=== PATIENT | female | born 1995 ===

== ENCOUNTER 2022-04-25 10:39 | Emergency (ER) | payer MEDICARE, MEDICAID, SELFPAY ==
--- NOTE | 2022-04-25 | ECG_ITS ---
Test Reason : cp,palpitations Blood Pressure : / mmHG Vent. Rate : 070 BPM Atrial Rate : 070 BPM P-R Int : 162 ms QRS Dur : 080 ms QT Int : 386 ms P-R-T Axes : 057 079 051 degrees QTc Int : 416 ms Normal sinus rhythm with sinus arrhythmia Normal ECG When compared with ECG of 09-MAR-2020 13:21, No significant change was found Referred By: Generic ED Physician Electronically Signed By:OUSMANE YU
--- NOTE | ~2022-04-25 | CT_ITS ---
EXAMINATION: CT ABDOMEN AND PELVIS WITHOUT CONTRAST CLINICAL INFORMATION: Flank pain with nausea and vomiting COMPARISON: None TECHNIQUE: Multidetector volumetric imaging was performed from the superior aspect of the liver through the pubic symphysis. Sagittal and coronal reformatted images were obtained on the technologist's workstation. This CT examination was performed using dose optimization techniques as appropriate, variously including the following: *Automated exposure control *Adjustment of mA and/or kV according to patient size (this includes techniques or standardized protocols for targeted exams where dose is matched to indication/reason for exam; i.e. extremities or head) *Use of iterative reconstruction technique DLP: 565 mGy-cm FINDINGS: LUNG BASES: The visualized lung bases are unremarkable. LIVER, GALLBLADDER, AND BILIARY TREE: The liver is normal in size, shape, and attenuation. No focal hepatic lesion or biliary ductal dilatation is present. The gallbladder is unremarkable with no evidence of radiopaque gallstones, gallbladder wall thickening, or obvious pericholecystic inflammatory changes. PANCREAS: Unremarkable. SPLEEN: Unremarkable. ADRENAL GLANDS: Unremarkable. KIDNEYS AND URETERS: Punctate 1 mm calcification in the midpole the right kidney equivocal for a tiny nonobstructing stone on series 4-247. No other radiodense urinary tract calculi. No hydronephrosis. No appreciable renal lesions. No perinephric stranding. BLADDER: Unremarkable. GASTROINTESTINAL TRACT: Mild sigmoid diverticulosis. No evidence acute diverticulitis. No dilated bowel loops. No bowel wall thickening. Normal appendix. No ascites or free air. ABDOMINAL WALL: No significant hernia is appreciated. LYMPH NODES: No lymphadenopathy. VASCULAR: Normal caliber abdominal aorta. PELVIC VISCERA: Approximately 3 cm low-density suspected cyst in the right ovary. Gynecologic structures otherwise unremarkable. Tampon noted. OSSEOUS STRUCTURES: No acute fracture or suspicious osseous lesion. CT/CT abdomen pelvis wo con IMPRESSION: 1. No acute intra-abdominal process identified. 2. Equivocal punctate 1 mm nonobstructing calculus in the right midpole. No other radiodense urinary tract calculi. 3. Approximately 3 cm likely benign low-density right ovarian cyst.
[2022-04-25 11:26] VITALS: BP 109/75; PULSE 82; RESP 18; TEMP 36.6; O2SAT 98; BMI 30.5
[2022-04-25 12:03] LABS: UPreg QC Valid YES; Urine Pregnancy NEGATIVE (NEGATIVE)
[2022-04-25 12:04] LABS: Appearance Urine CLEAR; Color Urine YELLOW; Glucose Urine UA NEG (NEG); Leukocyte Esterase Urine NEG (NEG); Nitrite Urine NEG (NEG); PH 6.5 (5.0-8.0); Urine Blood NEG (NEG); Urine Ketones NEG (NEG); Urine Protein NEG (NEG-TRACE)
[2022-04-25 12:08] LABS: Basophils Percent Auto 0.3 % (0-2); Eosinophils Percent Auto 0.2 % (0-4); Hemoglobin 13.5 g/dl (12.0-16.0); Imm Gran Abs Auto 0.01 X10*3/uL (0.00-0.03); Imm Gran Pct Auto 0.2 % (0.0-0.4); Lymphocytes Absolute Auto 2.1 X10*3/uL (1.2-4.9); Lymphocytes Percent Auto 36.1 % (20-40); MANUAL DIFF FLAG SCAN; Mean Corpuscular HGB Conc 34.6 g/dl (31.0-35.0); Mean Corpuscular Hemoglobin 31.6 pg (27.0-33.0); Mean Corpuscular Volume 91.3 fL (80.0-98.0); Monocytes Absolute Auto 0.4 X10*3/uL (0.1-1.2); Monocytes Percent Auto 6.4 % (2-11); Neutrophils Absolute Auto 3.3 x10*3/uL (2.0-8.3); Neutrophils Percent Auto 56.8 % (45-73); PLT CLUMP 1; Red Blood Count 4.27 X10*6/uL (4.20-5.50); Red Cell Distribution Width 11.8 % (11.0-16.0); SCAN SMEAR FLAG 1
[2022-04-25 12:10] LABS: Anion Gap 11 (12-20); Blood Urea Nitrogen 13 mg/dL (9-16); Calcium 9.6 mg/dL (8.4-10.2); Carbon Dioxide 27 mmol/L (22-29); Chloride 103 mmol/L (96-108); Creatinine Clr Calc Pharmacy 96.5; Estimated Glomerular Filt Rate > 60; Glucose Random 90 mg/dL (60-115); Potassium 4.4 mmol/L (3.3-5.1); Sodium 137 mmol/L (135-145)
[2022-04-25 12:24] LABS: Valproate 58.2 mcg/mL (50.0-100.0)
[2022-04-25 12:29] LABS: Magnesium 2.1 mg/dL (1.6-2.6)
[2022-04-25 13:29] LABS: Platelet Count 78 X10*3/uL (160-400); White Blood Count 5.8 X10*3/uL (4.8-10.8)
[2022-04-25 13:30] LABS: SLIDE REVIEW VERIFIED
[2022-04-25 16:00] VITALS: BP 122/74; PULSE 67; RESP 18; TEMP 36.9; O2SAT 99
[2022-04-25] MEDS: 0.9 % Sodium Chloride 1,000 ML 999 ML IVCONT (16:51)
--- NOTE | 2022-04-25 16:51 | ED.GENADULT ---
HPI - General Adult General Chief complaint: General Medical Stated complaint: Vomiting/Back pain/Abd pain Time Seen by Provider: 04/25/22 16:16 Source: patient Mode of arrival: ambulatory Limitations: no limitations History of Present Illness HPI narrative: 27-year-old female presents with several days of vomiting, flank pain, and abdominal pain. She does not report any fevers or chills, does not report abnormal vaginal bleeding or dysuria. Onset (ago): day(s) Location: abdomen and left Radiation: flank Severity: moderate Severity scale (1-10): 5 Quality: stabbing and aching Pain Consistency: intermittent and colicky Relieving factors: none Exacerbating factors: movement Associated symptoms: nausea/vomiting Treatments prior to arrival: none Related Data Previous Rx's Medication Instructions Recorded tamsulosin 0.4 mg capsule (Flomax) 0.4 mg PO DAILY 21 days #21 caps 04/25/22 Allergies Allergy/AdvReac Type Severity Reaction Status Date / Time bee pollen [BEE STINGS] Allergy Intermediate HIVES Verified 04/25/22 11:22 alprazolam Allergy Hives Verified 04/25/22 11:25 lamotrigine Allergy Hives Verified 04/25/22 11:24 levetiracetam [From Keppra] Allergy Unknown Verified 04/25/22 11:23 lithium Allergy Hives Verified 04/25/22 11:24 Review of Systems Review of Systems: Constitutional: No Fever, No Chills ENT/Mouth: No Ear Pain, No Hoarseness, No sore throat Eyes: No Eye Pain, No Swelling, No Redness, No Foreign Body Cardiovascular: No Chest Pain, No SOB Respiratory: No Cough, No Dyspnea Gastrointestinal: Positive Nausea, positive Vomiting, No Diarrhea, positive flank and abdominal Pain Genitourinary: No Dysuria, No Hematuria Musculoskeletal: No joint pain, No Myalgias, No Joint Swelling Skin: No Skin lacerations, No rash Neuro: No Weakness, No Numbness, No Paresthesias, No Loss of Consciousness, No Dizziness, No Headache Psych: No Anxiety/Panic, No Depression Heme/Lymph: no easy bruising, no Lymphadenopathy Endocrine: No Polyuria, No Polydipsia Yes all other systems are reviewed and are negative PMFSH Past Medical History Attestation statement: The following information was validated with the patient. Source: old records reviewed Medical History Abnormal ultrasound of breast Bipolar 1 disorder Fibroadenoma of both breasts Other specified glaucoma Post traumatic stress disorder (PTSD) Seizure Social History Social History Alcohol intake: never Patient Tobacco Use Status: Former Tobacco user Smoked in Last 30 Days: Yes Use of substances other than those prescribed or required for medical reasons: Yes Substance Use Type: Marijuana Substance Use Frequency: Daily Advance Directives: No Advance Directives Information Provided: No Patient : No Physical Exam ED Vital Signs: Vital Signs - 24 hr 04/25/22 11:26 04/25/22 16:00 04/25/22 17:39 Temperature 98 F 98.5 F 98.3 F Pulse Rate 82 67 68 Respiratory Rate 18 18 18 Blood Pressure 109/75 122/74 111/62 Pulse Oximetry 98 99 100 Oxygen Delivery Method Room Air Room Air Room Air BMI result Body Mass Index 30.5 Appearance: Alert. Oriented X3. No acute distress. Eyes: Pupils equal, round and reactive to light. ENT: Pharynx normal. Neck: Normal inspection. Neck supple. CVS: Normal heart rate and rhythm. Pulses normal. Respiratory: No respiratory distress. Breath sounds normal. Abdomen: Soft and nontender. Positive left CVA tenderness. Skin: Skin warm and dry. Normal skin color. Normal skin turgor. Extremities: No lower extremity edema. Gait well balanced well coordinated. Neuro: No motor deficit. No sensory deficit. Cranial nerves 2-12 intact. Course Course Course Narrative: 27-year-old female presents with abdominal pain, nausea, vomiting, for the past several days. States have flank pain that radiates up to her groin. Does not report any traumatic injury, denies . Denies fevers, chills, chest pain pressure, palpitations, shortness breath, abdominal distention, dysuria, hematuria, weakness and lightheadedness. Labs drawn while patient was in the emergency department waiting room, only notable lab was low platelets. Physical exam indicates left CVA tenderness, will order CT scan of abdomen pelvis to rule out kidney stones, pyelonephritis. CT is negative for acute findings require emergent intervention. Does show nonobstructing stone and non hemorrhagic cyst left ovary. Upon discharge instructions by this TRANSLATOR AND INTERPRETER, patient stated that she does have significant bruising. I did tiger text with Dr. Be, Dr. Be will accept her in the office as an outpatient. This could possibly be due to Depakote medication. For pain management I suggest patient use only Tylenol rather than Motrin because she has low platelets I did refer to Dr. Nolen for primary care, Dr. Bradley for kidney stone, Dr. Rock for ovarian cyst, and Dr. Be for thrombocytopenia. Patient verbalized understanding of and agrees to plan of care discharge home. Verbalized understanding of signs and symptoms indicating need for emergent intervention Consultations Consultation #1: Haile Time: 17:30 Medical Decision Making Differential Diagnosis Differential Diagnosis: Colitis, diverticulitis, kidney stone, ovarian cyst, constipation, pyelonep Medical Records Medical records reviewed: Yes I reviewed the patient's medical records. Lab Data Lab results reviewed: Yes I reviewed the patient's lab results. Result diagrams: 04/25/22 11:39 04/25/22 11:39 Labs: Lab Results 04/25/22 04/25/22 04/25/22 Range/Units 11:38 11:39 11:39 WBC 5.8 (4.8-10.8) X10*3/uL RBC 4.27 (4.20-5.50) X10*6/uL Hgb 13.5 (12.0-16.0) g/dl Hct 39.0 (37.0-47.0) % MCV 91.3 (80.0-98.0) fL MCH 31.6 (27.0-33.0) pg MCHC 34.6 (31.0-35.0) g/dl RDW 11.8 (11.0-16.0) % Plt Count 78 L (160-400) X10*3/uL MPV Not Reportable Immature Gran % (Auto) 0.2 (0.0-0.4) % Neut % (Auto) 56.8 (45-73) % Lymph % (Auto) 36.1 (20-40) % [place] % (Auto) 6.4 (2-11) % Eos % (Auto) 0.2 (0-4) % Baso % (Auto) 0.3 (0-2) % Lymph # (Auto) 2.1 (1.2-4.9) X10*3/uL [place] # (Auto) 0.4 (0.1-1.2) X10*3/uL Eos # (Auto) 0.0 (0.0-0.4) X10*3/uL Baso # (Auto) 0.0 (0.0-0.2) X10*3/uL Abs Immat Gran (auto) 0.01 (0.00-0.03) X10*3/uL Absolute Neuts (auto) 3.3 (2.0-8.3) x10*3/uL Absolute Nucleated RBC 0.000 (0.0-0.012) X10*3/uL Nucleated RBC % (auto) 0.0 (0.0-0.2) /100WBC Smear Tech's Comments VERIFIED Sodium 137 (135-145) mmol/L Potassium 4.4 (3.3-5.1) mmol/L Chloride 103 (96-108) mmol/L Carbon Dioxide 27 (22-29) mmol/L Anion Gap 11 L (12-20) BUN 13 (9-16) mg/dL Creatinine 0.77 (0.5-1.4) mg/dL Estim Creat Clear Calc 96.5 Estimated GFR > 60 Random Glucose 90 (60-115) mg/dL Calcium 9.6 (8.4-10.2) mg/dL Magnesium 2.1 (1.6-2.6) mg/dL Urine Color Urine Appearance Urine pH (5.0-8.0) Ur Specific [place] (1.005-1.025) Urine Protein (NEG-TRACE) MG/DL Urine Glucose (UA) (NEG) MG/DL Urine Ketones (NEG) MG/DL Urine Blood (NEG) Urine Nitrite (NEG) Ur Leukocyte Esterase (NEG) Urine Test NEGATIVE (NEGATIVE) Valproic Acid (50.0-100.0) mcg/mL COVID-19 (JOJO) (Negative) COVID-19 Clin Com Influenza Type A (DEX) (Negative) Influenza Type B (DEX) (Negative) Influenza A & B Note 04/25/22 04/25/22 04/25/22 Range/Units 11:39 11:39 11:40 WBC (4.8-10.8) X10*3/uL RBC (4.20-5.50) X10*6/uL Hgb (12.0-16.0) g/dl Hct (37.0-47.0) % MCV (80.0-98.0) fL MCH (27.0-33.0) pg MCHC (31.0-35.0) g/dl RDW (11.0-16.0) % Plt Count (160-400) X10*3/uL MPV Immature Gran % (Auto) (0.0-0.4) % Neut % (Auto) (45-73) % Lymph % (Auto) (20-40) % [place] % (Auto) (2-11) % Eos % (Auto) (0-4) % Baso % (Auto) (0-2) % Lymph # (Auto) (1.2-4.9) X10*3/uL [place] # (Auto) (0.1-1.2) X10*3/uL Eos # (Auto) (0.0-0.4) X10*3/uL Baso # (Auto) (0.0-0.2) X10*3/uL Abs Immat Gran (auto) (0.00-0.03) X10*3/uL Absolute Neuts (auto) (2.0-8.3) x10*3/uL Absolute Nucleated RBC (0.0-0.012) X10*3/uL Nucleated RBC % (auto) (0.0-0.2) /100WBC Smear Tech's Comments Sodium (135-145) mmol/L Potassium (3.3-5.1) mmol/L Chloride (96-108) mmol/L Carbon Dioxide (22-29) mmol/L Anion Gap (12-20) BUN (9-16) mg/dL Creatinine (0.5-1.4) mg/dL Estim Creat Clear Calc Estimated GFR Random Glucose (60-115) mg/dL Calcium (8.4-10.2) mg/dL Magnesium Cancelled (1.6-2.6) mg/dL Urine Color YELLOW Urine Appearance CLEAR Urine pH 6.5 (5.0-8.0) Ur Specific [place] 1.010 (1.005-1.025) Urine Protein NEG (NEG-TRACE) MG/DL Urine Glucose (UA) NEG (NEG) MG/DL Urine Ketones NEG (NEG) MG/DL Urine Blood NEG (NEG) Urine Nitrite NEG (NEG) Ur Leukocyte Esterase NEG (NEG) Urine Test (NEGATIVE) Valproic Acid 58.2 (50.0-100.0) mcg/mL COVID-19 (JOJO) (Negative) COVID-19 Clin Com Influenza Type A (DEX) (Negative) Influenza Type B (DEX) (Negative) Influenza A & B Note 04/25/22 04/25/22 Range/Units 16:38 16:38 WBC (4.8-10.8) X10*3/uL RBC (4.20-5.50) X10*6/uL Hgb (12.0-16.0) g/dl Hct (37.0-47.0) % MCV (80.0-98.0) fL MCH (27.0-33.0) pg MCHC (31.0-35.0) g/dl RDW (11.0-16.0) % Plt Count (160-400) X10*3/uL MPV Immature Gran % (Auto) (0.0-0.4) % Neut % (Auto) (45-73) % Lymph % (Auto) (20-40) % [place] % (Auto) (2-11) % Eos % (Auto) (0-4) % Baso % (Auto) (0-2) % Lymph # (Auto) (1.2-4.9) X10*3/uL [place] # (Auto) (0.1-1.2) X10*3/uL Eos # (Auto) (0.0-0.4) X10*3/uL Baso # (Auto) (0.0-0.2) X10*3/uL Abs Immat Gran (auto) (0.00-0.03) X10*3/uL Absolute Neuts (auto) (2.0-8.3) x10*3/uL Absolute Nucleated RBC (0.0-0.012) X10*3/uL Nucleated RBC % (auto) (0.0-0.2) /100WBC Smear Tech's Comments Sodium (135-145) mmol/L Potassium (3.3-5.1) mmol/L Chloride (96-108) mmol/L Carbon Dioxide (22-29) mmol/L Anion Gap (12-20) BUN (9-16) mg/dL Creatinine (0.5-1.4) mg/dL Estim Creat Clear Calc Estimated GFR Random Glucose (60-115) mg/dL Calcium (8.4-10.2) mg/dL Magnesium (1.6-2.6) mg/dL Urine Color Urine Appearance Urine pH (5.0-8.0) Ur Specific [place] (1.005-1.025) Urine Protein (NEG-TRACE) MG/DL Urine Glucose (UA) (NEG) MG/DL Urine Ketones (NEG) MG/DL Urine Blood (NEG) Urine Nitrite (NEG) Ur Leukocyte Esterase (NEG) Urine Test (NEGATIVE) Valproic Acid (50.0-100.0) mcg/mL COVID-19 (JOJO) Negative (Negative) COVID-19 Clin Com See Note Influenza Type A (DEX) Negative (Negative) Influenza Type B (DEX) Negative (Negative) Influenza A & B Note See Note Imaging Data CT scan - abdomen: Attestation: I personally reviewed and interpreted this imaging study as follows: Radiologist's impression: FINDINGS: LUNG BASES: The visualized lung bases are unremarkable.? LIVER, GALLBLADDER, AND BILIARY TREE: The liver is normal in size, shape, and attenuation. No focal hepatic lesion or biliary ductal dilatation is present. The gallbladder is unremarkable with no evidence of radiopaque gallstones, gallbladder wall thickening, or obvious pericholecystic inflammatory changes.? PANCREAS: Unremarkable.? SPLEEN: Unremarkable.? ADRENAL GLANDS: Unremarkable.? KIDNEYS AND URETERS: Punctate 1 mm calcification in the midpole the right kidney equivocal for a tiny nonobstructing stone on series 4-247. No other radiodense urinary tract calculi. No hydronephrosis. No appreciable renal lesions. No perinephric stranding.? BLADDER: Unremarkable.? GASTROINTESTINAL TRACT: Mild sigmoid diverticulosis. No evidence acute diverticulitis. No dilated bowel loops. No bowel wall thickening. Normal appendix. No ascites or free air.? ABDOMINAL WALL: No significant hernia is appreciated.? LYMPH NODES: No lymphadenopathy. VASCULAR: Normal caliber abdominal aorta. PELVIC VISCERA: Approximately 3 cm low-density suspected cyst in the right ovary. Gynecologic structures otherwise unremarkable. Tampon noted. OSSEOUS STRUCTURES: No acute fracture or suspicious osseous lesion.? CT/CT abdomen pelvis wo con IMPRESSION: ? 1. No acute intra-abdominal process identified. 2. Equivocal punctate 1 mm nonobstructing calculus in the right midpole. No other radiodense urinary tract calculi.? 3. Approximately 3 cm likely benign low-density right ovarian cyst. ? ECG Data Attestation: I personally reviewed and interpreted this ECG as follows: Prior ECG tracings: available for review Interpretation: Vent. rate 70 BPM MO interval 162 ms QRS duration 80 ms QT/QTc 386/416 ms P-R-T axes 57 79 51 Normal sinus rhythm with sinus arrhythmia Normal ECG When compared with ECG of 09-MAR-2020 13:21, No significant change was found 25-APR-2022 12:02:49 Discharge Plan Discharge Clinical Impression: Kidney stone, Ovarian cyst, Thrombocytopenia Patient Disposition: Home, Self-Care Instructions: Ovarian Cyst (ED), Kidney Stones (ED), Thrombocytopenia (ED) Additional Instructions: You were evaluated for abdominal pain. CT scan of abdomen and pelvis indicates a right kidney stone that is nonobstructing and a right ovarian cyst. Please take Flomax 0.4 mg daily for the next 3 weeks. Drink plenty of fluids. This should resolve on its own. This is a very small kidney stone and is not obstructing. If pain persists please follow-up with Dr. Bradley. Please call and request appointment. Please take Tylenol 650 mg every 6 hours as needed for pain management. Do not take Motrin, her platelet levels are low. For your ovarian cyst, please follow-up with Dr. Rock. For low platelet count, thrombocytopenia, please follow-up with Dr. Be. This could be related to your Depakote medication. This needs further investigation. Please follow-up with Dr. Nolen at [facility] to establish primary care. Thank you for choosing this emergency department for evaluation. Please follow-up with primary care physician as needed. Return to the emergency department for any new, concerning, or worsening symptoms. Prescriptions: New tamsulosin [Flomax] 0.4 mg capsule 0.4 mg PO DAILY 21 Days Qty: 21 0RF Referrals: Rigoberto Bradley MD [Physician] - (Kidney stone, follow-up as needed) Irina Be MD [Physician] - 10 days (Thrombocytopenia) José Luis Nolen MD [Physician] - 10 days (Establish primary care) Raghu Rock MD [Physician] - (Ovarian cyst, needs follow-up) Stand Alone Forms: Work/School Release Interventions: ED Discharge Assessment Last Done: 04/25/22 18:24 Discharge Date/Time: 04/25/22 18:25
[2022-04-25] MEDS: ondansetron HCL 4 MG/2 ML VIAL IVPUSH (16:59)
[2022-04-25] MEDS: Ketorolac Tromethamine 30 MG/ML VIAL IVPUSH (16:59)
--- NOTE | 2022-04-25 17:00 | PC.NURSE ---
patient a&ox3, vss, iv inserted, pt medicated per order, pt c/o 07/08 left flank/back pain, family at bedside, pt had ct scan, call walker within reach, will continue to monitor.
[2022-04-25 17:21] LABS: COVID-19 Test Negative (Negative); IDNOW Serial# 16C4AD1C
[2022-04-25 17:22] LABS: Influenza A Negative (Negative); Influenza B2 Negative (Negative)
[2022-04-25 17:39] VITALS: BP 111/62; PULSE 68; RESP 18; TEMP 36.8; O2SAT 100
--- NOTE | 2022-04-25 17:39 | PC.NURSE ---
patient a&ox3, vss, pt c/o 05/07 pain but states its feeling better. will continue to monitor.
[2022-04-25] MEDS: Tamsulosin HCL 0.4 MG CAPSULE PO (17:58)
--- NOTE | 2022-04-25 17:58 | PC.NURSE ---
pt medicated per order
== END 2022-04-25 18:25 | disposition home or self-care (01) ==
PROVIDERS: Nurse Practitioner Family; Emergency Provider Internal Medicine
DX: N20.0 Calculus of kidney (principal); N83.201 Unspecified ovarian cyst, right side; D69.6 Thrombocytopenia, unspecified; Z20.822 Contact with and (suspected) exposure to COVID-19
CPT/HCPCS: 36415; 74176; 80048; 80164; 81003; 81025; 83735; 85025; 87502; 87635; 93005; 96361; 96374; 96375; 99284; J1885; J2405

== ENCOUNTER 2022-06-06 14:18 | Outpatient (REF) | payer MEDICARE, SELFPAY ==
[2022-06-06 15:13] LABS: Hematocrit 37.6 % (37.0-47.0); Hemoglobin 12.8 g/dl (12.0-16.0); Mean Platelet Volume 10.5 fL (9.4-12.3); Platelet Count 232 X10*3/uL (160-400); Red Blood Count 4.13 X10*6/uL (4.20-5.50); Red Cell Distribution Width 11.8 % (11.0-16.0); White Blood Count 6.4 X10*3/uL (4.8-10.8)
[2022-06-06 16:03] LABS: TSH reflex Free T4 3.84 uIU/mL (0.32-4.0)
[2022-06-07 11:51] LABS: CT PCR NOT DETECTED (Not Detect.); NG PCR NOT DETECTED (Not Detect.)
== END 2022-06-06 14:19 | disposition home or self-care (01) ==
LOC: HO.LAB 14:18
PROVIDERS: Visit Provider Obstetrics & Gynecology
DX: Z01.411 Encounter for gynecological examination (general) (routine) with abnormal findings (principal); R10.2 Pelvic and perineal pain; N93.9 Abnormal uterine and vaginal bleeding, unspecified
CPT/HCPCS: 36415; 84443; 85027; 87086; 87480; 87491; 87510; 87591; 87660; 88142; 99202

== ENCOUNTER 2022-06-10 11:15 | Emergency (ER) | payer MEDICARE, MEDICAID, SELFPAY ==
--- NOTE | ~2022-06-10 | CT_ITS ---
EXAMINATION: CT ABDOMEN AND PELVIS WITHOUT CONTRAST CLINICAL INFORMATION: Pain, rule out kidney stone or mass COMPARISON: CT abdomen pelvis 04/17/2022 TECHNIQUE: Multidetector volumetric imaging was performed from the superior aspect of the liver through the pubic symphysis. Sagittal and coronal reformatted images were obtained on the technologist's workstation. This CT examination was performed using dose optimization techniques as appropriate, variously including the following: *Automated exposure control *Adjustment of mA and/or kV according to patient size (this includes techniques or standardized protocols for targeted exams where dose is matched to indication/reason for exam; i.e. extremities or head) *Use of iterative reconstruction technique DLP: 550 mGy-cm FINDINGS: LUNG BASES: The visualized lung bases are unremarkable. LIVER, GALLBLADDER, AND BILIARY TREE: The liver is normal in size, shape, and attenuation. No focal hepatic lesion or biliary ductal dilatation is present. The gallbladder is unremarkable with no evidence of radiopaque gallstones, gallbladder wall thickening, or obvious pericholecystic inflammatory changes. PANCREAS: Unremarkable. SPLEEN: Unremarkable. ADRENAL GLANDS: Unremarkable. KIDNEYS AND URETERS: The kidneys are normal in size, shape, and attenuation. No hydronephrosis, hydroureter, or calculi seen. No perinephric stranding. BLADDER: Mildly thick-walled appearance likely due to limited distention. No focal bladder wall thickening. GASTROINTESTINAL TRACT: The small and large bowel are unremarkable. The appendix is unremarkable. No ascites or free air. ABDOMINAL WALL: No significant hernia is appreciated. LYMPH NODES: No lymphadenopathy. VASCULAR: Normal caliber abdominal aorta. PELVIC VISCERA: Previously seen right adnexal cyst is no longer identified. Gynecologic structures are grossly unremarkable limited assessment. No free pelvic fluid. OSSEOUS STRUCTURES: No acute fracture or suspicious osseous lesion. CT/CT abdomen pelvis wo con IMPRESSION: 1. No acute intra-abdominal process identified. 2. Previously seen right adnexal/ovarian cyst has resolved. 3. No renal calculi identified.
[2022-06-10 11:21] VITALS: BP 133/87; PULSE 88; RESP 20; TEMP 36.8; O2SAT 99; BMI 39.0
[2022-06-10 13:37] LABS: Appearance Urine CLEAR; Color Urine YELLOW; Glucose Urine UA NEG (NEG); Leukocyte Esterase Urine NEG (NEG); Nitrite Urine NEG (NEG); PH 7.5 (5.0-8.0); Urine Blood NEG (NEG); Urine Ketones NEG (NEG); Urine Protein NEG (NEG-TRACE)
[2022-06-10 13:54] LABS: UPreg QC Valid YES; Urine Pregnancy NEGATIVE (NEGATIVE)
--- NOTE | 2022-06-10 13:55 | ED_ITS ---
HPI - Back Pain/Injury General Chief Complaint: Back Pain/Injury Stated Complaint: kidney stones Time Seen by Provider: 06/10/22 13:33 History of Present Illness HPI Narrative: Patient complains of back flank pain body aches that radiate to the groin area, denies any fever and chills denies burning with urination denies nausea or vomiting no diarrhea no anorexia Related Data Home Medications Medication Instructions Recorded Confirmed divalproex 250 mg tablet,extended mg PO 06/05/22 release 24 hr fluoxetine 20 mg capsule 20 mg PO DAILY 06/05/22 Previous Rx's Medication Instructions Recorded tamsulosin 0.4 mg capsule (Flomax) 0.4 mg PO DAILY 21 days #21 caps 04/25/22 hydroxyzine HCl 25 mg tablet 25 mg PO QID PRN Sleeping aid #10 06/10/22 tabs Allergies Allergy/AdvReac Type Severity Reaction Status Date / Time bee pollen [BEE STINGS] Allergy Intermediate HIVES Verified 06/06/22 13:52 alprazolam Allergy Hives Verified 06/06/22 13:52 lamotrigine Allergy Hives Verified 06/06/22 13:52 levetiracetam [From Keppra] Allergy Unknown Verified 06/06/22 13:52 lithium Allergy Hives Verified 06/06/22 13:52 Review of Systems Review of Systems: Positive for back pain and flank pain Negatives are no fever no chills no dizziness no weakness no fainting no feeling faint no headache no neck pain no chest pain no shortness of breath no nausea vomiting or diarrhea no changes to bowel or bladder no incontinence no skin rash Yes all other systems are reviewed and are negative PMFSH Past Medical History Source: nursing notes reviewed Medical History Abnormal ultrasound of breast Bipolar 1 disorder Fibroadenoma of both breasts Other specified glaucoma Post traumatic stress disorder (PTSD) Seizure Social History Social History Alcohol intake: never Patient Tobacco Use Status: Former Tobacco user Substance Use Type: Marijuana Advance Directives: No Advance Directives Information Provided: No Physical Exam Vital Signs: Vital Signs: Last Vital Signs Temp 98.3 F 06/10/22 11:21 Pulse 88 06/10/22 11:21 Resp 20 06/10/22 11:21 BP 133/87 08/13/22 11:21 Pulse Ox 99 06/10/22 11:21 O2 Del Method 06/10/22 11:21 BMI result Body Mass Index 39.0 General appearance is no acute distress Eyes anicteric no pallor The pharynx is clear with no redness swelling or exudate, mucous membranes are moist, voice is normal Neck is supple Chest is clear to auscultation bilateral Heart no murmur Abdomen soft nontender The back there is bilateral flank and lower lumbar tenderness, there is no focal bony tenderness, skin of the back is normal Extremities full range of motion x4 Neuro gait and balance are normal, interaction both expression and comprehension are normal, motor is 5/5 x4 cranial nerves 2-12 intact as tested Course Course Course Narrative: CT abdomen and pelvis with out acute findings, no kidney stones no mass Labs did not reveal any acute abnormalities Patient is already using Tylenol and Motrin but still finds it hard to sleep so she is given a prescription for Atarax to try at night to see if it helps her Well-appearing patient without emergent diagnosis is discharged to follow with primary doctor MDM - Back Pain/Injury Lab Data Attestation: I reviewed the patient's lab results. Result diagrams: 06/10/22 14:27 06/10/22 14:27 Labs: Lab Results 06/10/22 06/10/22 06/10/22 Range/Units 13:26 13:26 14:27 WBC 6.1 (4.8-10.8) X10*3/uL RBC 4.10 L (4.20-5.50) X10*6/uL Hgb 12.9 (12.0-16.0) g/dl Hct 37.8 (37.0-47.0) % MCV 92.2 (80.0-98.0) fL MCH 31.5 (27.0-33.0) pg MCHC 34.1 (31.0-35.0) g/dl RDW 11.7 (11.0-16.0) % Plt Count 232 (160-400) X10*3/uL MPV 9.9 (9.4-12.3) fL Immature Gran % (Auto) 0.2 (0.0-0.4) % Neut % (Auto) 51.8 (45-73) % Lymph % (Auto) 39.3 (20-40) % [place] % (Auto) 7.7 (2-11) % Eos % (Auto) 0.7 (0-4) % Baso % (Auto) 0.3 (0-2) % Lymph # (Auto) 2.4 (1.2-4.9) X10*3/uL [place] # (Auto) 0.5 (0.1-1.2) X10*3/uL Eos # (Auto) 0.0 (0.0-0.4) X10*3/uL Baso # (Auto) 0.0 (0.0-0.2) X10*3/uL Abs Immat Gran (auto) 0.01 (0.00-0.03) X10*3/uL Absolute Neuts (auto) 3.2 (2.0-8.3) x10*3/uL Absolute Nucleated RBC 0.000 (0.0-0.012) X10*3/uL Nucleated RBC % (auto) 0.0 (0.0-0.2) /100WBC Sodium (135-145) mmol/L Potassium (3.3-5.1) mmol/L Chloride (96-108) mmol/L Carbon Dioxide (22-29) mmol/L Anion Gap (12-20) BUN (9-16) mg/dL Creatinine (0.5-1.4) mg/dL Estim Creat Clear Calc Estimated GFR Random Glucose (60-115) mg/dL Calcium (8.4-10.2) mg/dL Total Bilirubin (0.0-1.0) mg/dL Direct Bilirubin (0.0-0.5) mg/dL AST (5-31) U/L ALT (0-31) U/L Alkaline Phosphatase (39-117) U/L Total Protein (6.5-8.0) g/dL Albumin (3.5-5.0) g/dL Lipase (8-78) U/L Urine Color YELLOW Urine Appearance CLEAR Urine pH 7.5 (5.0-8.0) Ur Specific [place] 1.010 (1.005-1.025) Urine Protein NEG (NEG-TRACE) MG/DL Urine Glucose (UA) NEG (NEG) MG/DL Urine Ketones NEG (NEG) MG/DL Urine Blood NEG (NEG) Urine Nitrite NEG (NEG) Ur Leukocyte Esterase NEG (NEG) Urine Test NEGATIVE (NEGATIVE) 06/10/22 Range/Units 14:27 WBC (4.8-10.8) X10*3/uL RBC (4.20-5.50) X10*6/uL Hgb (12.0-16.0) g/dl Hct (37.0-47.0) % MCV (80.0-98.0) fL MCH (27.0-33.0) pg MCHC (31.0-35.0) g/dl RDW (11.0-16.0) % Plt Count (160-400) X10*3/uL MPV (9.4-12.3) fL Immature Gran % (Auto) (0.0-0.4) % Neut % (Auto) (45-73) % Lymph % (Auto) (20-40) % [place] % (Auto) (2-11) % Eos % (Auto) (0-4) % Baso % (Auto) (0-2) % Lymph # (Auto) (1.2-4.9) X10*3/uL [place] # (Auto) (0.1-1.2) X10*3/uL Eos # (Auto) (0.0-0.4) X10*3/uL Baso # (Auto) (0.0-0.2) X10*3/uL Abs Immat Gran (auto) (0.00-0.03) X10*3/uL Absolute Neuts (auto) (2.0-8.3) x10*3/uL Absolute Nucleated RBC (0.0-0.012) X10*3/uL Nucleated RBC % (auto) (0.0-0.2) /100WBC Sodium 137 (135-145) mmol/L Potassium 4.7 (3.3-5.1) mmol/L Chloride 102 (96-108) mmol/L Carbon Dioxide 27 (22-29) mmol/L Anion Gap 13 (12-20) BUN 11 (9-16) mg/dL Creatinine 0.78 (0.5-1.4) mg/dL Estim Creat Clear Calc 108.7 Estimated GFR > 60 Random Glucose 97 (60-115) mg/dL Calcium 9.5 (8.4-10.2) mg/dL Total Bilirubin 0.3 (0.0-1.0) mg/dL Direct Bilirubin < 0.2 (0.0-0.5) mg/dL AST 12 (5-31) U/L ALT 10 (0-31) U/L Alkaline Phosphatase 46 (39-117) U/L Total Protein 6.8 (6.5-8.0) g/dL Albumin 4.1 (3.5-5.0) g/dL Lipase 22 (8-78) U/L Urine Color Urine Appearance Urine pH (5.0-8.0) Ur Specific [place] (1.005-1.025) Urine Protein (NEG-TRACE) MG/DL Urine Glucose (UA) (NEG) MG/DL Urine Ketones (NEG) MG/DL Urine Blood (NEG) Urine Nitrite (NEG) Ur Leukocyte Esterase (NEG) Urine Test (NEGATIVE) Discharge Plan Discharge Clinical Impression: Back pain, Flank pain Patient Disposition: Home, Self-Care Additional Instructions: Our workup today did not find any dangerous or emergent condition We are not sure what is the cause of your back and flank pain Follow with primary care doctor for further evaluation As you are having trouble sleeping and spasming in her back we are going to try Atarax at night to see if it helps to relieve the symptoms Return to the ER any time any worse condition or any concerns Prescriptions: New hydroxyzine HCl 25 mg tablet 25 mg PO QID PRN (Reason: Sleeping aid) Qty: 10 0RF No Action tamsulosin [Flomax] 0.4 mg capsule 0.4 mg PO DAILY 21 Days Qty: 21 0RF divalproex 250 mg tablet extended release 24 hr PO fluoxetine 20 mg capsule 20 mg PO DAILY Interventions: ED Discharge Assessment Last Done: 06/10/22 15:32 Discharge Date/Time: 06/10/22 15:32
[2022-06-10 14:32] LABS: Basophils Percent Auto 0.3 % (0-2); Eosinophils Percent Auto 0.7 % (0-4); Hematocrit 37.8 % (37.0-47.0); Hemoglobin 12.9 g/dl (12.0-16.0); Imm Gran Abs Auto 0.01 X10*3/uL (0.00-0.03); Imm Gran Pct Auto 0.2 % (0.0-0.4); Lymphocytes Absolute Auto 2.4 X10*3/uL (1.2-4.9); Lymphocytes Percent Auto 39.3 % (20-40); MANUAL DIFF FLAG NO; Mean Corpuscular HGB Conc 34.1 g/dl (31.0-35.0); Mean Corpuscular Hemoglobin 31.5 pg (27.0-33.0); Mean Corpuscular Volume 92.2 fL (80.0-98.0); Mean Platelet Volume 9.9 fL (9.4-12.3); Monocytes Absolute Auto 0.5 X10*3/uL (0.1-1.2); Monocytes Percent Auto 7.7 % (2-11); Neutrophils Absolute Auto 3.2 x10*3/uL (2.0-8.3); Neutrophils Percent Auto 51.8 % (45-73); Platelet Count 232 X10*3/uL (160-400); Red Cell Distribution Width 11.7 % (11.0-16.0); White Blood Count 6.1 X10*3/uL (4.8-10.8)
[2022-06-10 14:59] LABS: Alanine Aminotransferase 10 U/L (0-31); Albumin Level 4.1 g/dL (3.5-5.0); Alkaline Phosphatase 46 U/L (39-117); Anion Gap 13 (12-20); Aspartate Amino Transferase 12 U/L (5-31); Bilirubin Direct < 0.2 mg/dL (0.0-0.5); Bilirubin Total 0.3 mg/dL (0.0-1.0); Blood Urea Nitrogen 11 mg/dL (9-16); Calcium 9.5 mg/dL (8.4-10.2); Carbon Dioxide 27 mmol/L (22-29); Chloride 102 mmol/L (96-108); Creatinine Clr Calc Pharmacy 108.7; Estimated Glomerular Filt Rate > 60; Glucose Random 97 mg/dL (60-115); Lipase 22 U/L (8-78); Potassium 4.7 mmol/L (3.3-5.1); Sodium 137 mmol/L (135-145); Total Protein 6.8 g/dL (6.5-8.0)
== END 2022-06-10 15:32 | disposition home or self-care (01) ==
PROVIDERS: Physician Assistant Medical; Emergency Provider Student in an Organized Health Care Education/Training Program
DX: R10.9 Unspecified abdominal pain (principal)
CPT/HCPCS: 36415; 74176; 80048; 80076; 81003; 81025; 83690; 85025; 99283; 99284

== ENCOUNTER 2022-08-10 09:15 | Emergency (ER) | payer MEDICARE, MEDICAID, SELFPAY ==
--- NOTE | ~2022-08-10 | XR_ITS ---
EXAMINATION: XR TOES, RIGHT CLINICAL INFORMATION: First toe pain COMPARISON: None TECHNIQUE: 3 views of the right toes were obtained. FINDINGS: No fracture, dislocation or destructive process. Joint spaces preserved. No radiopaque foreign body. XR/XR toe RT min 2V IMPRESSION: Unremarkable study.
--- NOTE | 2022-08-10 09:33 | ED.EXTPRO ---
HPI - Extremity Problem General Chief complaint: Extremity Injury, Lower Stated complaint: R foot pain Time Seen by Provider: 08/10/22 09:21 Source: patient Mode of arrival: ambulatory Limitations: no limitations History of Present Illness HPI Narrative: 27 yo female presenting to the ER with 3 days of nontraumatic right great toe pain. She feels like the pain may be coming from a bunion. She has never had this pain before 3 days ago. It is worse when she is on her feet for several hours or when she walks up stairs. She denies any injury or trauma. It has been hurting when she wears her sneakers so has started wearing slide sandals. No other toe pain, no ankle pain. No redness or warmth. She has full range of the great toe but has pain with flexion. MD Complaint: joint pain Onset (ago): day(s) (3) Pain Consistency: intermittent Location: right and lower extremity Severity scale (1-10): 6 Quality: stabbing Radiation: proximal Relieving factors: immobilization and rest Exacerbating factors: weight bearing and palpation Associated symptoms: denies other symptoms Related Data Home Medications Medication Instructions Recorded Confirmed divalproex 250 mg tablet,extended mg PO 06/05/22 release 24 hr fluoxetine 20 mg capsule 20 mg PO DAILY 06/05/22 prazosin 5 mg capsule 5 mg PO BEDTIME 06/13/22 Previous Rx's Medication Instructions Recorded tamsulosin 0.4 mg capsule (Flomax) 0.4 mg PO DAILY 21 days #21 caps 04/25/22 hydroxyzine HCl 25 mg tablet 25 mg PO QID PRN Sleeping aid #10 06/10/22 tabs Allergies Allergy/AdvReac Type Severity Reaction Status Date / Time bee pollen [BEE STINGS] Allergy Intermediate HIVES Verified 06/13/22 08:34 alprazolam Allergy Hives Verified 06/13/22 08:34 lamotrigine Allergy Hives Verified 06/13/22 08:34 levetiracetam [From Keppra] Allergy Unknown Verified 06/13/22 08:34 lithium Allergy Hives Verified 06/13/22 08:34 Review of Systems Review of Systems: Constitutional: No Fever, No Chills Cardiovascular: No Chest Pain, No SOB, No Edema Gastrointestinal: No Nausea, No Vomiting Musculoskeletal:+ joint pain, No Myalgias Skin: No Skin Lesions, No rash Neuro: No Weakness, No Numbness Heme/Lymph: No Bruising, No Lymphadenopathy PMFSH Past Medical History Medical History Abnormal ultrasound of breast Bipolar 1 disorder Fibroadenoma of both breasts Other specified glaucoma Post traumatic stress disorder (PTSD) Seizure Social History Social History Alcohol intake: never Patient Tobacco Use Status: Former Tobacco user Substance Use Type: Marijuana Advance Directives: Yes Advance Directives on File: Yes Advance Directives Date on File: 08/10/22 Physical Exam Vital Signs: Vital Signs: Last Vital Signs Temp 97.6 F 08/10/22 09:50 Pulse 77 08/10/22 09:50 Resp 16 08/10/22 09:50 BP 108/63 08/10/22 09:50 Pulse Ox 97 08/10/22 09:50 O2 Del Method 08/10/22 09:50 BMI result Body Mass Index 36.6 Appearance: Alert. Oriented X3. No acute distress. HEENT: normal inspection CVS: Normal heart rate and rhythm. Pulses normal. Respiratory: No respiratory distress. Skin: Skin warm and dry. Normal skin color. Normal skin turgor. No rashes. Extremities: Normal inspection of the bilateral feet, the right proximal phalanx of the great toe NM TTP with some moderate lateral tenderness. No significant angulation of the great toe. No erythema, warmth, swelling. Neurovascularly intact distally. Neuro: Oriented X 3. No motor deficit. No sensory deficit. Steady gait Course Course Course Narrative: 27-year-old female here with right great toe pain, nontraumatic. It is located at the proximal phalanx without erythema or warmth to suggest infection or gout. Most likely simple bunion. Asking for x-rays per her PCP. Reevaluation(s) Reevaluation #1: X-rays normal. Referred to production officer and her PCP. Number encouraged to get [id number] bunion correct her or support. Encourage doctor when she is. Stable for discharge home. Discharge Plan Discharge Clinical Impression: Bunion of great toe of right foot Patient Disposition: Home, Self-Care Instructions: Bunion (ED) Additional Instructions: Your x-ray today was normal. Recommend an over the counter bunion corrector or brace for the foot to help with comfort - these can be found online or at your local pharmacy Take Motrin and/or Tylenol as needed for pain. Recommend wearing extra-wide shoes that are supportive. Recommend following up with a Bilingual Medical Assistant Prescriptions: No Action hydroxyzine HCl 25 mg tablet 25 mg PO QID PRN (Reason: Sleeping aid) Qty: 10 0RF tamsulosin [Flomax] 0.4 mg capsule 0.4 mg PO DAILY 21 Days Qty: 21 0RF divalproex 250 mg tablet extended release 24 hr PO fluoxetine 20 mg capsule 20 mg PO DAILY prazosin 5 mg capsule 5 mg PO BEDTIME Referrals: Fred Tirado MD [Physician] - (great toe bunion on right foot)
[2022-08-10 09:50] VITALS: BP 108/63; PULSE 77; RESP 16; TEMP 36.4; O2SAT 97; BMI 36.6
--- NOTE | 2022-08-10 11:03 | MHC.CM.ED ---
Received notification from Isabela of registration that patient requesting to complete HCP. Met with patient. HCP completed, signed and witnessed. Original given to patient. Copy placed in chart.
== END 2022-08-10 10:57 | disposition home or self-care (01) ==
PROVIDERS: Emergency Provider Student in an Organized Health Care Education/Training Program
DX: M21.611 Bunion of right foot (principal); M79.674 Pain in right toe(s)
CPT/HCPCS: 73660; 99283

== ENCOUNTER 2023-01-07 13:54 | Emergency (ER) | payer MEDICARE, MEDICAID, SELFPAY ==
--- NOTE | ~2023-01-07 | XR_ITS ---
EXAMINATION: XR CHEST CLINICAL INFORMATION: Cough, fever. COMPARISON: None TECHNIQUE: 2 views of the chest were obtained. FINDINGS: No significant abnormality is noted involving the heart, lungs, mediastinum, bony thorax or soft tissues. XR/XR chest 2V IMPRESSION: No acute cardiopulmonary process.
[2023-01-07 14:16] VITALS: BP 139/102; PULSE 93; RESP 16; TEMP 36.5; O2SAT 98; BMI 31.0
--- NOTE | 2023-01-07 14:16 | ED_ITS ---
HPI - URI/Sore Throat General Chief Complaint: Upper Respiratory Symptoms <LAURIE Wynn - Last Filed: 01/07/23 14:23> Stated Complaint: Ear pain/Sore throat/Seizures <LAURIE Wynn - Last Filed: 01/07/23 14:23> Time Seen by Provider: 01/07/23 14:29 <LAURIE Wynn - Last Filed: 01/07/23 14:23> Source: patient <LAURIE Calvo - Last Filed: 01/07/23 17:10> Mode of arrival: ambulatory <LAURIE Calvo Last Filed: 01/07/23 17:10> Limitations: no limitations <LAURIE Calvo Last Filed: 01/07/23 17:10> History of Present Illness HPI Narrative: 27 y.o female with a PMHx of asthma, seizures on Depakote, presenting to the ED c/o dry cough, intermittent fevers, bilateral ear pain/pressure, mild SOB, CP associated with coughing, & diarrhea x2 weeks. Also reports menstrual issues x months has been following with OBGYN, lower abdominal discomfort, & lower extremity bruising. Also reports witnessed seizure yesterday, which she states is typical for her when she gets sick. Denies head trauma from seizures. Reports compliance with Depakote without missing any doses, hemoptysis, bloody stool or emesis, or urinary symptoms. Denies recent travel or sick contacts. <LAURIE Calvo Last Filed: 01/07/23 17:10> MD elicited complaint: fever and cough <LAURIE Calvo Last Filed: 01/07/23 17:10> Onset (ago): week(s) <LAURIE Calvo Last Filed: 01/07/23 17:10> Related Data Home Medications: Home Medications Medication Instructions Recorded Confirmed divalproex 250 mg tablet,extended mg PO 06/05/22 release 24 hr fluoxetine 20 mg capsule 20 mg PO DAILY 06/05/22 prazosin 5 mg capsule 5 mg PO BEDTIME 06/13/22 Previous Rx's Medication Instructions Recorded tamsulosin 0.4 mg capsule (Flomax) 0.4 mg PO DAILY 21 days #21 caps 04/25/22 hydroxyzine HCl 25 mg tablet 25 mg PO QID PRN Sleeping aid #10 06/10/22 tabs fluticasone propionate 50 2 spray intranasal DAILY #16 grams 01/07/23 mcg/actuation nasal spray,suspension (Flonase Allergy Relief) prednisone 20 mg tablet 40 mg PO DAILY 5 days #10 tabs 01/07/23 <LAURIE Wynn Last Filed: 01/07/23 14:23> Allergies/Adverse Reactions: Allergies Allergy/AdvReac Type Severity Reaction Status Date / Time bee pollen [BEE STINGS] Allergy Intermediate HIVES Verified 06/13/22 08:34 alprazolam Allergy Hives Verified 06/13/22 08:34 lamotrigine Allergy Hives Verified 06/13/22 08:34 levetiracetam [From Keppra] Allergy Unknown Verified 06/13/22 08:34 lithium Allergy Hives Verified 06/13/22 08:34 mushroom Allergy Hives Verified 01/07/23 14:21 <LAURIE Wynn - Last Filed: 01/07/23 14:23> Review of Systems Review of Systems: Constitutional: + Fever, No Chills ENT/Mouth: + Ear Pain, + Nasal Congestion, +Sinus Pain, No Hoarseness, No sore throat, + Rhinorrhea, No Swallowing Difficulty Cardiovascular: +Chest Pain associated with coughing, + Mild SOB Respiratory: +Cough, +Sputum, No Wheezing Gastrointestinal: No Nausea, +Vomiting, +Diarrhea, No Constipation, + Lower Abdominal pain Genitourinary: +abnormal/missed menses, No Dysuria, No Urinary Frequency, No Hematuria, No Urinary Incontinence/retention, No Urgency, No Flank Pain Musculoskeletal: No joint pain, No Myalgias, No Joint Swelling Skin: No Skin Lesions, No rash, +Bruising Neuro: No Weakness, No Numbness, No Paresthesias <LAURIE Calvo Last Filed: 01/07/23 17:10> Yes all other systems are reviewed and are negative <LAURIE Calvo Last Filed: 01/07/23 17:10> Constitutional: Constitutional: Reports as per HPI and Denies no additional constitutional complaints <LAURIE Calvo Last Filed: 01/07/23 17:10> [facility] Past Medical History Attestation statement: The following information was validated with the patient. 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 Post traumatic stress disorder (PTSD) Seizure <LAURIE Wynn - Last Filed: 01/07/23 14:23> Social History Social History: Social History Alcohol intake: never Patient Tobacco Use Status: Former Tobacco user Substance Use Type: Marijuana Advance Directives: Yes Advance Directives on File: Yes Advance Directives Date on File: 08/10/22 <LAURIE Wynn - Last Filed: 01/07/23 14:23> Physical Exam Vital Signs: Vital Signs: Last Vital Signs Temp 97.8 F 01/07/23 14:33 Pulse 93 01/07/23 14:16 Resp 16 01/07/23 14:16 BP 139/102 H 01/07/23 14:16 Pulse Ox 98 01/07/23 14:16 O2 Del Method 01/07/23 14:16 BMI result Body Mass Index 31.0 <LAURIE Wynn - Last Filed: 01/07/23 14:23> Vital Signs: Last Vital Signs Temp 97.8 F 01/07/23 14:33 Pulse 93 01/07/23 14:16 Resp 16 01/07/23 14:16 BP 139/102 H 01/07/23 14:16 Pulse Ox 98 01/07/23 14:16 O2 Del Method 01/07/23 14:16 BMI result Body Mass Index 31.0 <LAURIE Calvo - Last Filed: 01/07/23 17:10> Const: General: cooperative, healthy appearing and no acute distress <LAURIE Calvo - Last Filed: 01/07/23 17:10> Orientation/consciousness: patient oriented x3 <LAUREI Calov - Last Filed: 01/07/23 17:10> Limitations: no limitations <LAURIE Calvo - Last Filed: 01/07/23 17:10> HEENT: Head: Yes normal to inspection and Yes atraumatic <Katina Mcguire PA - Last Filed: 01/07/23 17:10> Ears: hearing grossly normal bilaterally and TM's normal bilaterally <Katina Mcguire PA - Last Filed: 01/07/23 17:10> General nose exam: Normal external nose present <LAURIE Calvo - Last Filed: 01/07/23 17:10> Face and sinus: Yes normal facial exam <Katina Mcguire PA - Last Filed: 01/07/23 17:10> Mouth: Normal oral and palatal mucosa present <Katina Mcguire PA - Last Filed: 01/07/23 17:10> Throat: Yes posterior oropharynx normal, Yes tonsils normal, Yes uvula midline, No uvula laterally displaced and No uvular edema <LAURIE Calvo - Last Filed: 01/07/23 17:10> Eyes: General: appearance normal, both eyes and all related structures <LAURIE Calvo - Last Filed: 01/07/23 17:10> Pupils: Equal, round and reactive pupils present <Katina Mcguire PA - Last Filed: 01/07/23 17:10> EOM: EOMs intact bilaterally <LAURIE Calvo - Last Filed: 01/07/23 17:10> Neck: Neck: Yes normal visual inspection and Yes no meningeal signs <LAURIE Calvo - Last Filed: 01/07/23 17:10> Resp: Effort & Inspection: normal respiratory effort, Actively coughing Quality: dry and no respiratory distress <LAURIE Calvo - Last Filed: 01/07/23 17:10> Auscultation: clear to auscultation bilaterally, no crackles, no rales, no rhonchi and no wheezes <LAURIE Calvo - Last Filed: 01/07/23 17:10> Cardio: Rate: regular rate <LAURIE Calvo - Last Filed: 01/07/23 17:10> Heart sounds: S1 normal heart sound present and S2 normal heart sound present <LAURIE Calvo - Last Filed: 01/07/23 17:10> GI: Inspection: Yes normal to inspection <LAURIE Calvo - Last Filed: 01/07/23 17:10> Palpation (GI): Soft to palpation, nontender, no guarding and not rigid <LAURIE Calvo - Last Filed: 01/07/23 17:10> Skin: Other: Few small quarter-sized healing areas of ecchymosis on bilateral thighs <LAURIE Calvo - Last Filed: 01/07/23 17:10> General skin exam: ecchymosis <LAURIE Calvo - Last Filed: 01/07/23 17:10> Rashes: no rashes <LAURIE Calvo - Last Filed: 01/07/23 17:10> Neuro: General: patient oriented x3, gait normal, tone normal, moves all extremities, no meningeal signs, no focal motor deficits and CN's II-XI intact bilaterally <LAURIE Calvo - Last Filed: 01/07/23 17:10> Cranial nerves: Yes Equal, round and reactive pupils present <LAURIE Calvo - Last Filed: 01/07/23 17:10> Gait exam (Neuro): Normal gait present <LAURIE Calvo - Last Filed: 01/07/23 17:10> Extrem: General: Yes normal to inspection <LAURIE Calvo - Last Filed: 01/07/23 17:10> Course Course Course Narrative: RME - 27 yo female with history of asthma, nonepileptic seizures on depakote presents to the ER for evaluation of congestion, cough, fevers, ear pain, sore throat, nasal congestion for the last 2 weeks. Reports increased seizures at home, common when she gets sick or stressed. Daughter recently ill with similar symptoms but she got better quickly. SpO2 99% in triage, HR 90s. Plan: CXR to r/o PNA, viral swabs <LAURIE Wynn - Last Filed: 01/07/23 14:23> RME - 27 yo female with history of asthma, nonepileptic seizures on depakote presents to the ER for evaluation of congestion, cough, fevers, ear p ain, sore throat, nasal congestion for the last 2 weeks. Reports increased seizures at home, common when she gets sick or stressed. Daughter recently ill with similar symptoms but she got better quickly. SpO2 99% in triage, HR 90s. Plan: CXR to r/o PNA, viral swabs XR chest 2V IMPRESSION: No acute cardiopulmonary process. -[id number]--labs unremarkable, however Depakote level low -tox screen negative. COVID-19/influenza/RSV negative Results discussed with patient including worrisome signs and symptoms and strict return precautions, and when to return to the emergency department. They verbalized understanding and feel safe for discharge at this time. <LAURIE Calvo - Last Filed: 01/07/23 17:10> Medical Decision Making Medical Decision Making MDM Narrative: 27 y.o female with a PMHx of asthma, seizures on Depakote, presenting to the ED c/o dry cough, intermittent fevers, bilateral ear pain/pressure, mild SOB, CP associated with coughing, & diarrhea x2 weeks. Also reports lower abdominal discomfort, & lower extremity bruising w/ witnessed seizure yesterday. On exam patient mildly hypertensive, well-appearing, actively coughing but in NAD, VSS. Lungs CTA. Posterior oropharynx WNL. Abdomen soft and nontender. Concern for viral syndrome vs pneumonia vs bronchitis vs acute asthma exacerbation. Rule out metabolic/infectious etiologies. Low suspicion for PE/ACS, diverticulitis, appendicitis, ovarian torsion/TOA or ICH/fracture. Rule out coagulopathy Plan: Covid/flu/RSV, CXR, labs, UA w/culture, urine hCG Please refer to course for remaining clinical decision making, interpretation of labs/imaging results, and discussions with consultants and/or family members. <LAURIE Calvo - Last Filed: 01/07/23 17:10> Differential Diagnosis Differential Diagnoses: The differential diagnosis associated with the presentation includes <LAURIE Calvo Last Filed: 01/07/23 17:10> As above <LAURIE Calvo Last Filed: 01/07/23 17:10> Admission/Observation Consideration of admission/observation: Escalation of care including admission/observation considered <LAURIE Calvo Last Filed: 01/07/23 17:10> Lab Data [facility] Lab Attestation statement: I reviewed the patient's lab results. <LAURIE Calvo - Last Filed: 01/07/23 17:10> Result Diagrams: 01/07/23 15:59 01/07/23 15:59 <LAURIE Wynn - Last Filed: 01/07/23 14:23> Labs: Lab Results 01/07/23 01/07/23 01/07/23 Range/Units 14:30 15:47 15:47 WBC (4.8-10.8) X10*3/uL RBC (4.20-5.50) X10*6/uL Hgb (12.0-16.0) g/dl Hct (37.0-47.0) % MCV (80.0-98.0) fL MCH (27.0-33.0) pg MCHC (31.0-35.0) g/dl RDW (11.0-16.0) % Plt Count (160-400) X10*3/uL MPV (9.4-12.3) fL Immature Gran % (Auto) (0.0-0.4) % Neut % (Auto) (45-73) % Lymph % (Auto) (20-40) % [place] % (Auto) (2-11) % Eos % (Auto) (0-4) % Baso % (Auto) (0-2) % Lymph # (Auto) (1.2-4.9) X10*3/uL [place] # (Auto) (0.1-1.2) X10*3/uL Eos # (Auto) (0.0-0.4) X10*3/uL Baso # (Auto) (0.0-0.2) X10*3/uL Abs Immat Gran (auto) (0.00-0.03) X10*3/uL Absolute Neuts (auto) (2.0-8.3) x10*3/uL Absolute Nucleated RBC (0.0-0.012) X10*3/uL Nucleated RBC % (auto) (0.0-0.2) /100WBC Smear Tech's Comments PT (10.0-13.1) SEC INR (0.9-1.1) Sodium (135-145) mmol/L Potassium (3.3-5.1) mmol/L Chloride (96-108) mmol/L Carbon Dioxide (22-29) mmol/L Anion Gap (12-20) BUN (9-16) mg/dL Creatinine (0.5-1.4) mg/dL Estim Creat Clear Calc Estimated GFR Random Glucose (60-115) mg/dL Calcium (8.4-10.2) mg/dL Magnesium (1.6-2.6) mg/dL Total Bilirubin (0.0-1.0) mg/dL Direct Bilirubin (0.0-0.5) mg/dL AST (5-31) U/L ALT (0-31) U/L Alkaline Phosphatase (39-117) U/L Total Protein (6.5-8.0) g/dL Albumin (3.5-5.0) g/dL Urine Color Yellow Urine Appearance Clear Urine pH 6.5 (5.0-9.0) Ur Specific [place] <= 1.005 (1.005-1.025) Urine Protein Negative (Neg-Trace) mg/dL Urine Glucose (UA) Negative (Negative) mg/dL Urine Ketones Negative (Negative) mg/dL Urine Blood Negative (Negative) Urine Nitrite Negative (Negative) Ur Leukocyte Esterase Negative (Negative) Urine Test (NEGATIVE) Urine Opiates Screen Not Detected (Not Detect) Urine Fentanyl Screen Not Detected (Not Detect) Ur Barbiturates Screen Not Detected (Not Detect) Valproic Acid (50.0-100.0) mcg/mL Ur Phencyclidine Scrn Not Detected (Not Detect) Ur Amphetamines Screen Not Detected (Not Detect) U Benzodiazepines Scrn Not Detected (Not Detect) Urine Cocaine Screen Not Detected (Not Detect) U Marijuana (THC) Screen Not Detected (Not Detect) Influenza Type A (PCR) NEGATIVE (Negative) Influenza Type B (PCR) NEGATIVE (Negative) RSV RNA Qual (PCR) NEGATIVE (Negative) SARS-CoV-2 RNA (RT-PCR) NEGATIVE (Negative) 01/07/23 01/07/23 01/07/23 Range/Units 15:48 15:58 15:59 WBC 5.5 (4.8-10.8) X10*3/uL RBC 4.74 (4.20-5.50) X10*6/uL Hgb 14.4 (12.0-16.0) g/dl Hct 42.0 (37.0-47.0) % MCV 88.6 (80.0-98.0) fL MCH 30.4 (27.0-33.0) pg MCHC 34.3 (31.0-35.0) g/dl RDW 11.8 (11.0-16.0) % Plt Count 257 (160-400) X10*3/uL MPV 10.0 (9.4-12.3) fL Immature Gran % (Auto) 0.4 (0.0-0.4) % Neut % (Auto) 47.9 (45-73) % Lymph % (Auto) 45.1 H (20-40) % [place] % (Auto) 5.5 (2-11) % Eos % (Auto) 0.7 (0-4) % Baso % (Auto) 0.4 (0-2) % Lymph # (Auto) 2.5 (1.2-4.9) X10*3/uL [place] # (Auto) 0.3 (0.1-1.2) X10*3/uL Eos # (Auto) 0.0 (0.0-0.4) X10*3/uL Baso # (Auto) 0.0 (0.0-0.2) X10*3/uL Abs Immat Gran (auto) 0.02 (0.00-0.03) X10*3/uL Absolute Neuts (auto) 2.6 (2.0-8.3) x10*3/uL Absolute Nucleated RBC 0.000 (0.0-0.012) X10*3/uL Nucleated RBC % (auto) 0.0 (0.0-0.2) /100WBC Smear Tech's Comments VERIFIED PT 11.4 (10.0-13.1) SEC INR 1.0 (0.9-1.1) Sodium (135-145) mmol/L Potassium (3.3-5.1) mmol/L Chloride (96-108) mmol/L Carbon Dioxide (22-29) mmol/L Anion Gap (12-20) BUN (9-16) mg/dL Creatinine (0.5-1.4) mg/dL Estim Creat Clear Calc Estimated GFR Random Glucose (60-115) mg/dL Calcium (8.4-10.2) mg/dL Magnesium (1.6-2.6) mg/dL Total Bilirubin (0.0-1.0) mg/dL Direct Bilirubin (0.0-0.5) mg/dL AST (5-31) U/L ALT (0-31) U/L Alkaline Phosphatase (39-117) U/L Total Protein (6.5-8.0) g/dL Albumin (3.5-5.0) g/dL Urine Color Urine Appearance Urine pH (5.0-9.0) Ur Specific [place] (1.005-1.025) Urine Protein (Neg-Trace) mg/dL Urine Glucose (UA) (Negative) mg/dL Urine Ketones (Negative) mg/dL Urine Blood (Negative) Urine Nitrite (Negative) Ur Leukocyte Esterase (Negative) Urine Test NEGATIVE (NEGATIVE) Urine Opiates Screen (Not Detect) Urine Fentanyl Screen (Not Detect) Ur Barbiturates Screen (Not Detect) Valproic Acid (50.0-100.0) mcg/mL Ur Phencyclidine Scrn (Not Detect) Ur Amphetamines Screen (Not Detect) U Benzodiazepines Scrn (Not Detect) Urine Cocaine Screen (Not Detect) U Marijuana (THC) Screen (Not Detect) Influenza Type A (PCR) (Negative) Influenza Type B (PCR) (Negative) RSV RNA Qual (PCR) (Negative) SARS-CoV-2 RNA (RT-PCR) (Negative) 01/07/23 01/07/23 Range/Units 15:59 15:59 WBC (4.8-10.8) X10*3/uL RBC (4.20-5.50) X10*6/uL Hgb (12.0-16.0) g/dl Hct (37.0-47.0) % MCV (80.0-98.0) fL MCH (27.0-33.0) pg MCHC (31.0-35.0) g/dl RDW (11.0-16.0) % Plt Count (160-400) X10*3/uL MPV (9.4-12.3) fL Immature Gran % (Auto) (0.0-0.4) % Neut % (Auto) (45-73) % Lymph % (Auto) (20-40) % [place] % (Auto) (2-11) % Eos % (Auto) (0-4) % Baso % (Auto) (0-2) % Lymph # (Auto) (1.2-4.9) X10*3/uL [place] # (Auto) (0.1-1.2) X10*3/uL Eos # (Auto) (0.0-0.4) X10*3/uL Baso # (Auto) (0.0-0.2) X10*3/uL Abs Immat Gran (auto) (0.00-0.03) X10*3/uL Absolute Neuts (auto) (2.0-8.3) x10*3/uL Absolute Nucleated RBC (0.0-0.012) X10*3/uL Nucleated RBC % (auto) (0.0-0.2) /100WBC Smear Tech's Comments PT (10.0-13.1) SEC INR (0.9-1.1) Sodium 138 (135-145) mmol/L Potassium 4.7 (3.3-5.1) mmol/L Chloride 102 (96-108) mmol/L Carbon Dioxide 27 (22-29) mmol/L Anion Gap 14 (12-20) BUN 9 (9-16) mg/dL Creatinine 0.74 (0.5-1.4) mg/dL Estim Creat Clear Calc 101.2 Estimated GFR > 60 Random Glucose 80 (60-115) mg/dL Calcium 9.4 (8.4-10.2) mg/dL Magnesium 1.9 (1.6-2.6) mg/dL Total Bilirubin 0.4 (0.0-1.0) mg/dL Direct Bilirubin < 0.2 (0.0-0.5) mg/dL AST 17 (5-31) U/L ALT 15 (0-31) U/L Alkaline Phosphatase 90 (39-117) U/L Total Protein 7.7 (6.5-8.0) g/dL Albumin 4.4 (3.5-5.0) g/dL Urine Color Urine Appearance Urine pH (5.0-9.0) Ur Specific [place] (1.005-1.025) Urine Protein (Neg-Trace) mg/dL Urine Glucose (UA) (Negative) mg/dL Urine Ketones (Negative) mg/dL Urine Blood (Negative) Urine Nitrite (Negative) Ur Leukocyte Esterase (Negative) Urine Test (NEGATIVE) Urine Opiates Screen (Not Detect) Urine Fentanyl Screen (Not Detect) Ur Barbiturates Screen (Not Detect) Valproic Acid 25.5 L (50.0-100.0) mcg/mL Ur Phencyclidine Scrn (Not Detect) Ur Amphetamines Screen (Not Detect) U Benzodiazepines Scrn (Not Detect) Urine Cocaine Screen (Not Detect) U Marijuana (THC) Screen (Not Detect) Influenza Type A (PCR) (Negative) Influenza Type B (PCR) (Negative) RSV RNA Qual (PCR) (Negative) SARS-CoV-2 RNA (RT-PCR) (Negative) <LAURIE Wynn - Last Filed: 01/07/23 14:23> Lab Results 01/07/23 01/07/23 01/07/23 Range/Units 14:30 15:47 15:47 WBC (4.8-10.8) X10*3/uL RBC (4.20-5.50) X10*6/uL Hgb (12.0-16.0) g/dl Hct (37.0-47.0) % MCV (80.0-98.0) fL MCH (27.0-33.0) pg MCHC (31.0-35.0) g/dl RDW (11.0-16.0) % Plt Count (160-400) X10*3/uL MPV (9.4-12.3) fL Immature Gran % (Auto) (0.0-0.4) % Neut % (Auto) (45-73) % Lymph % (Auto) (20-40) % [place] % (Auto) (2-11) % Eos % (Auto) (0-4) % Baso % (Auto) (0-2) % Lymph # (Auto) (1.2-4.9) X10*3/uL [place] # (Auto) (0.1-1.2) X10*3/uL Eos # (Auto) (0.0-0.4) X10*3/uL Baso # (Auto) (0.0-0.2) X10*3/uL Abs Immat Gran (auto) (0.00-0.03) X10*3/uL Absolute Neuts (auto) (2.0-8.3) x10*3/uL Absolute Nucleated RBC (0.0-0.012) X10*3/uL Nucleated RBC % (auto) (0.0-0.2) /100WBC Smear Tech's Comments PT (10.0-13.1) SEC INR (0.9-1.1) Sodium (135-145) mmol/L Potassium (3.3-5.1) mmol/L Chloride (96-108) mmol/L Carbon Dioxide (22-29) mmol/L Anion Gap (12-20) BUN (9-16) mg/dL Creatinine (0.5-1.4) mg/dL Estim Creat Clear Calc Estimated GFR Random Glucose (60-115) mg/dL Calcium (8.4-10.2) mg/dL Magnesium (1.6-2.6) mg/dL Total Bilirubin (0.0-1.0) mg/dL Direct Bilirubin (0.0-0.5) mg/dL AST (5-31) U/L ALT (0-31) U/L Alkaline Phosphatase (39-117) U/L Total Protein (6.5-8.0) g/dL Albumin (3.5-5.0) g/dL Urine Color Yellow Urine Appearance Clear Urine pH 6.5 (5.0-9.0) Ur Specific [place] <= 1.005 (1.005-1.025) Urine Protein Negative (Neg-Trace) mg/dL Urine Glucose (UA) Negative (Negative) mg/dL Urine Ketones Negative (Negative) mg/dL Urine Blood Negative (Negative) Urine Nitrite Negative (Negative) Ur Leukocyte Esterase Negative (Negative) Urine Test (NEGATIVE) Urine Opiates Screen Not Detected (Not Detect) Urine Fentanyl Screen Not Detected (Not Detect) Ur Barbiturates Screen Not Detected (Not Detect) Valproic Acid (50.0-100.0) mcg/mL Ur Phencyclidine Scrn Not Detected (Not Detect) Ur Amphetamines Screen Not Detected (Not Detect) U Benzodiazepines Scrn Not Detected (Not Detect) Urine Cocaine Screen Not Detected (Not Detect) U Marijuana (THC) Screen Not Detected (Not Detect) Influenza Type A (PCR) NEGATIVE (Negative) Influenza Type B (PCR) NEGATIVE (Negative) RSV RNA Qual (PCR) NEGATIVE (Negative) SARS-CoV-2 RNA (RT-PCR) NEGATIVE (Negative) 01/07/23 01/07/23 01/07/23 Range/Units 15:48 15:58 15:59 WBC 5.5 (4.8-10.8) X10*3/uL RBC 4.74 (4.20-5.50) X10*6/uL Hgb 14.4 (12.0-16.0) g/dl Hct 42.0 (37.0-47.0) % MCV 88.6 (80.0-98.0) fL MCH 30.4 (27.0-33.0) pg MCHC 34.3 (31.0-35.0) g/dl RDW 11.8 (11.0-16.0) % Plt Count 257 (160-400) X10*3/uL MPV 10.0 (9.4-12.3) fL Immature Gran % (Auto) 0.4 (0.0-0.4) % Neut % (Auto) 47.9 (45-73) % Lymph % (Auto) 45.1 H (20-40) % [place] % (Auto) 5.5 (2-11) % Eos % (Auto) 0.7 (0-4) % Baso % (Auto) 0.4 (0-2) % Lymph # (Auto) 2.5 (1.2-4.9) X10*3/uL [place] # (Auto) 0.3 (0.1-1.2) X10*3/uL Eos # (Auto) 0.0 (0.0-0.4) X10*3/uL Baso # (Auto) 0.0 (0.0-0.2) X10*3/uL Abs Immat Gran (auto) 0.02 (0.00-0.03) X10*3/uL Absolute Neuts (auto) 2.6 (2.0-8.3) x10*3/uL Absolute Nucleated RBC 0.000 (0.0-0.012) X10*3/uL Nucleated RBC % (auto) 0.0 (0.0-0.2) /100WBC Smear Tech's Comments VERIFIED PT 11.4 (10.0-13.1) SEC INR 1.0 (0.9-1.1) Sodium (135-145) mmol/L Potassium (3.3-5.1) mmol/L Chloride (96-108) mmol/L Carbon Dioxide (22-29) mmol/L Anion Gap (12-20) BUN (9-16) mg/dL Creatinine (0.5-1.4) mg/dL Estim Creat Clear Calc Estimated GFR Random Glucose (60-115) mg/dL Calcium (8.4-10.2) mg/dL Magnesium (1.6-2.6) mg/dL Total Bilirubin (0.0-1.0) mg/dL Direct Bilirubin (0.0-0.5) mg/dL AST (5-31) U/L ALT (0-31) U/L Alkaline Phosphatase (39-117) U/L Total Protein (6.5-8.0) g/dL Albumin (3.5-5.0) g/dL Urine Color Urine Appearance Urine pH (5.0-9.0) Ur Specific [place] (1.005-1.025) Urine Protein (Neg-Trace) mg/dL Urine Glucose (UA) (Negative) mg/dL Urine Ketones (Negative) mg/dL Urine Blood (Negative) Urine Nitrite (Negative) Ur Leukocyte Esterase (Negative) Urine Test NEGATIVE (NEGATIVE) Urine Opiates Screen (Not Detect) Urine Fentanyl Screen (Not Detect) Ur Barbiturates Screen (Not Detect) Valproic Acid (50.0-100.0) mcg/mL Ur Phencyclidine Scrn (Not Detect) Ur Amphetamines Screen (Not Detect) U Benzodiazepines Scrn (Not Detect) Urine Cocaine Screen (Not Detect) U Marijuana (THC) Screen (Not Detect) Influenza Type A (PCR) (Negative) Influenza Type B (PCR) (Negative) RSV RNA Qual (PCR) (Negative) SARS-CoV-2 RNA (RT-PCR) (Negative) 01/07/23 01/07/23 Range/Units 15:59 15:59 WBC (4.8-10.8) X10*3/uL RBC (4.20-5.50) X10*6/uL Hgb (12.0-16.0) g/dl Hct (37.0-47.0) % MCV (80.0-98.0) fL MCH (27.0-33.0) pg MCHC (31.0-35.0) g/dl RDW (11.0-16.0) % Plt Count (160-400) X10*3/uL MPV (9.4-12.3) fL Immature Gran % (Auto) (0.0-0.4) % Neut % (Auto) (45-73) % Lymph % (Auto) (20-40) % [place] % (Auto) (2-11) % Eos % (Auto) (0-4) % Baso % (Auto) (0-2) % Lymph # (Auto) (1.2-4.9) X10*3/uL [place] # (Auto) (0.1-1.2) X10*3/uL Eos # (Auto) (0.0-0.4) X10*3/uL Baso # (Auto) (0.0-0.2) X10*3/uL Abs Immat Gran (auto) (0.00-0.03) X10*3/uL Absolute Neuts (auto) (2.0-8.3) x10*3/uL Absolute Nucleated RBC (0.0-0.012) X10*3/uL Nucleated RBC % (auto) (0.0-0.2) /100WBC Smear Tech's Comments PT (10.0-13.1) SEC INR (0.9-1.1) Sodium 138 (135-145) mmol/L Potassium 4.7 (3.3-5.1) mmol/L Chloride 102 (96-108) mmol/L Carbon Dioxide 27 (22-29) mmol/L Anion Gap 14 (12-20) BUN 9 (9-16) mg/dL Creatinine 0.74 (0.5-1.4) mg/dL Estim Creat Clear Calc 101.2 Estimated GFR > 60 Random Glucose 80 (60-115) mg/dL Calcium 9.4 (8.4-10.2) mg/dL Magnesium 1.9 (1.6-2.6) mg/dL Total Bilirubin 0.4 (0.0-1.0) mg/dL Direct Bilirubin < 0.2 (0.0-0.5) mg/dL AST 17 (5-31) U/L ALT 15 (0-31) U/L Alkaline Phosphatase 90 (39-117) U/L Total Protein 7.7 (6.5-8.0) g/dL Albumin 4.4 (3.5-5.0) g/dL Urine Color Urine Appearance Urine pH (5.0-9.0) Ur Specific [place] (1.005-1.025) Urine Protein (Neg-Trace) mg/dL Urine Glucose (UA) (Negative) mg/dL Urine Ketones (Negative) mg/dL Urine Blood (Negative) Urine Nitrite (Negative) Ur Leukocyte Esterase (Negative) Urine Test (NEGATIVE) Urine Opiates Screen (Not Detect) Urine Fentanyl Screen (Not Detect) Ur Barbiturates Screen (Not Detect) Valproic Acid 25.5 L (50.0-100.0) mcg/mL Ur Phencyclidine Scrn (Not Detect) Ur Amphetamines Screen (Not Detect) U Benzodiazepines Scrn (Not Detect) Urine Cocaine Screen (Not Detect) U Marijuana (THC) Screen (Not Detect) Influenza Type A (PCR) (Negative) Influenza Type B (PCR) (Negative) RSV RNA Qual (PCR) (Negative) SARS-CoV-2 RNA (RT-PCR) (Negative) <LAURIE Calvo - Last Filed: 01/07/23 17:10> Radiology Impression Discussion of test interpretation with radiology: I have reviewed the radiologist's reading. <LAURIE Calvo - Last Filed: 01/07/23 17:10> External Record Review External record reviewed: Inpatient record, Office record, Outpatient record, Prior outpatient labs, Prior outpatient radiology, Primary care record and Outside ED record <LAURIE Harvey - Last Filed: 01/07/23 17:10> Discharge Plan Discharge Clinical Impression: Upper respiratory infection, Bronchitis <LAURIE Wynn - Last Filed: 01/07/23 14:23> Patient Disposition: Home, Self-Care <LAURIE Wynn - Last Filed: 01/07/23 14:23> Instructions: Acute Bronchitis (ED) <LAURIE Wynn - Last Filed: 01/07/23 14:23> Additional Instructions: Your blood work was reassuring, however your Depakote level was low. Do not miss any doses of her medication Prednisone as a steroid please take as prescribed Please follow-up with her doctor and her neurologist. If her symptoms persist or worsen, your unable to eat or drink have persistent or recurrent seizures return to the ED <LAURIE Wynn - Last Filed: 01/07/23 14:23> Prescriptions: New prednisone 20 mg tablet 40 mg PO DAILY 5 Days Qty: 10 0RF fluticasone propionate [Flonase Allergy Relief] 50 mcg/actuation spray,suspension 2 spray intranasal DAILY Qty: 16 0RF Rx Instructions: administer into each nostril No Action hydroxyzine HCl 25 mg tablet 25 mg PO QID PRN (Reason: Sleeping aid) Qty: 10 0RF tamsulosin [Flomax] 0.4 mg capsule 0.4 mg PO DAILY 21 Days Qty: 21 0RF divalproex 250 mg tablet extended release 24 hr PO fluoxetine 20 mg capsule 20 mg PO DAILY prazosin 5 mg capsule 5 mg PO BEDTIME <LAURIE Wynn - Last Filed: 01/07/23 14:23> Referrals: [facility] [place]Provider Group] <LAURIE Wynn - Last Filed: 01/07/23 14:23> Interventions: ED Discharge Assessment Last Done: 01/07/23 16:53 <LAURIE Wynn - Last Filed: 01/07/23 14:23> Discharge Date/Time: 01/07/23 16:55 <LAURIE Wynn - Last Filed: 01/07/23 14:23>
[2023-01-07 14:33] VITALS: TEMP 36.6
[2023-01-07 15:21] LABS: Influenza A PCR NEGATIVE (Negative); Influenza B PCR NEGATIVE (Negative); Resp Syncy Virus RNA Qual PCR NEGATIVE (Negative); SARS COV2 PCR INHOUSE NEGATIVE (Negative)
[2023-01-07 16:07] LABS: Appearance Urine Clear; Color Urine Yellow; Glucose Urine UA Negative (Negative); Leukocyte Esterase Urine Negative (Negative); Nitrite Urine Negative (Negative); PH 6.5 (5.0-9.0); Specific Gravity - Urine <= 1.005 (1.005-1.025); Urine Blood Negative (Negative); Urine Ketones Negative (Negative); Urine Protein Negative (Neg-Trace)
[2023-01-07 16:10] LABS: UPreg QC Valid YES; Urine Pregnancy NEGATIVE (NEGATIVE)
[2023-01-07 16:11] LABS: Prothrombin Time 11.4 SEC (10.0-13.1)
[2023-01-07 16:17] LABS: Amphetamine Screen Urine Not Detected (Not Detect); Barbiturates, Urine Not Detected (Not Detect); Benzodiazepines Screen Urine Not Detected (Not Detect); Cannabinoid Screen Urine Not Detected (Not Detect); Cocaine Screen Urine Not Detected (Not Detect); Fentanyl, urine Not Detected (Not Detect); Opiate Screen Urine Not Detected (Not Detect); Phencyclidine Screen Urine Not Detected (Not Detect)
[2023-01-07 16:21] LABS: Valproate 25.5 mcg/mL (50.0-100.0)
[2023-01-07 16:22] LABS: Basophils Percent Auto 0.4 % (0-2); Eosinophils Percent Auto 0.7 % (0-4); Hemoglobin 14.4 g/dl (12.0-16.0); Imm Gran Abs Auto 0.02 X10*3/uL (0.00-0.03); Imm Gran Pct Auto 0.4 % (0.0-0.4); Lymphocytes Absolute Auto 2.5 X10*3/uL (1.2-4.9); Lymphocytes Percent Auto 45.1 % (20-40); MANUAL DIFF FLAG SCAN; Mean Corpuscular HGB Conc 34.3 g/dl (31.0-35.0); Mean Corpuscular Hemoglobin 30.4 pg (27.0-33.0); Mean Corpuscular Volume 88.6 fL (80.0-98.0); Monocytes Absolute Auto 0.3 X10*3/uL (0.1-1.2); Monocytes Percent Auto 5.5 % (2-11); Neutrophils Absolute Auto 2.6 x10*3/uL (2.0-8.3); Neutrophils Percent Auto 47.9 % (45-73); Platelet Count 257 X10*3/uL (160-400); Red Blood Count 4.74 X10*6/uL (4.20-5.50); Red Cell Distribution Width 11.8 % (11.0-16.0); SCAN SMEAR FLAG 1; White Blood Count 5.5 X10*3/uL (4.8-10.8)
[2023-01-07 16:25] LABS: Alanine Aminotransferase 15 U/L (0-31); Albumin Level 4.4 g/dL (3.5-5.0); Alkaline Phosphatase 90 U/L (39-117); Anion Gap 14 (12-20); Aspartate Amino Transferase 17 U/L (5-31); Bilirubin Direct < 0.2 mg/dL (0.0-0.5); Bilirubin Total 0.4 mg/dL (0.0-1.0); Blood Urea Nitrogen 9 mg/dL (9-16); Calcium 9.4 mg/dL (8.4-10.2); Carbon Dioxide 27 mmol/L (22-29); Chloride 102 mmol/L (96-108); Creatinine Clr Calc Pharmacy 101.2; Estimated Glomerular Filt Rate > 60; Glucose Random 80 mg/dL (60-115); Magnesium 1.9 mg/dL (1.6-2.6); Potassium 4.7 mmol/L (3.3-5.1); Sodium 138 mmol/L (135-145); Total Protein 7.7 g/dL (6.5-8.0)
[2023-01-07 16:30] LABS: SLIDE REVIEW VERIFIED
== END 2023-01-07 16:55 | disposition home or self-care (01) ==
PROVIDERS: Physician Assistant; Emergency Provider Student in an Organized Health Care Education/Training Program
DX: J06.9 Acute upper respiratory infection, unspecified (principal); J40 Bronchitis, not specified as acute or chronic; Z20.822 Contact with and (suspected) exposure to COVID-19; Z20.828 Contact with and (suspected) exposure to other viral communicable diseases; Z79.899 Other long term (current) drug therapy
CPT/HCPCS: 0241U; 36415; 71046; 80048; 80076; 80164; 80307; 81003; 81025; 83735; 85025; 85610; 99283

== ENCOUNTER 2023-04-08 22:26 | Emergency (ER) | payer MEDICARE, MEDICAID, SELFPAY ==
[2023-04-08 22:29] VITALS: BP 120/85; PULSE 133; RESP 20; TEMP 36.5; O2SAT 100; BMI 27.3
--- NOTE | 2023-04-08 23:02 | ED_ITS ---
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 250 mg twice daily for seizures back to back after having food lasted only for few seconds each with hi story of same in the past no postictal symptoms no tongue bite no frothing, no incontinence Related Data Home Medications Medication Instructions Recorded Confirmed divalproex 250 mg tablet,extended mg PO 06/05/22 release 24 hr fluoxetine 20 mg capsule 20 mg PO DAILY 06/05/22 prazosin 5 mg capsule 5 mg PO BEDTIME 06/13/22 Previous Rx's Medication Instructions Recorded tamsulosin 0.4 mg capsule (Flomax) 0.4 mg PO DAILY 21 days #21 caps 04/25/22 hydroxyzine HCl 25 mg tablet 25 mg PO QID PRN Sleeping aid #10 06/10/22 tabs fluticasone propionate 50 2 spray intranasal DAILY #16 grams 01/07/23 mcg/actuation nasal spray,suspension (Flonase Allergy Relief) prednisone 20 mg tablet 40 mg PO DAILY 5 days #10 tabs 01/07/23 ibuprofen 600 mg tablet 600 mg PO Q6H PRN fever or pain 04/09/23 #30 tabs Allergies Allergy/AdvReac Type Severity Reaction Status Date / Time bee pollen [BEE STINGS] Allergy Intermediate HIVES Verified 06/13/22 08:34 alprazolam Allergy Hives Verified 06/13/22 08:34 lamotrigine Allergy Hives Verified 06/13/22 08:34 levetiracetam [From Keppra] Allergy Unknown Verified 06/13/22 08:34 lithium Allergy Hives Verified 06/13/22 08:34 mushroom Allergy Hives Verified 01/07/23 14:21 Review of Systems Review of Systems: Yes all other systems are reviewed and are negative PMFSH Past Medical History Medical History Abnormal ultrasound of breast Bipolar 1 disorder Fibroadenoma of both breasts Other specified glaucoma Post traumatic stress disorder (PTSD) Seizure Social History Social History Alcohol intake: never Patient Tobacco Use Status: Former Tobacco user Smoked in Last 30 Days: Yes Use of substances other than those prescribed or required for medical reasons: Yes Substance Use Type: Marijuana Advance Directives: Yes Advance Directives on File: Yes Advance Directives Date on File: 08/10/22 Patient : No Physical Exam Vital Signs: Vital Signs: Last Vital Signs Temp 98.1 F 04/08/23 23:44 Pulse 88 04/08/23 23:44 Resp 18 04/08/23 23:44 BP 105/56 L 04/08/23 23:44 Pulse Ox 96 04/08/23 23:44 O2 Del Method Room Air 04/08/23 23:44 BMI result Body Mass Index 27.3 Appearance: Alert. Oriented X3. No acute distress. Eyes: PERRLA, No Nystagmus ENT: Pharynx normal. Oral Mucosa moist no tongue Neck: Normal inspection. Neck supple. CVS: Normal heart rate and rhythm. Pulses normal. Respiratory: No respiratory distress. Equal air entry bilateral, no wheezing/rales/rhonchi chest wall tenderness left side 2nd intercostal space Abdomen: Soft and nontender. Bowel sounds are present, no mass palpable, no CVA tenderness Skin: Skin warm and dry. Normal skin color. Normal skin turgor. Extremities: No lower extremity edema. No calf tenderness Neuro: Oriented X 3. No motor deficit. No sensory deficit.No cerebellar signs , cranial nerves II-XII intact Medications Administered Discontinued Medications Generic Name Dose Route Start Last Admin Trade Name Freq PRN Reason Stop Dose Admin Sodium Chloride 1,000 mls @ 999 mls/hr 04/08/23 23:02 04/09/23 01:10 Ns IV 04/09/23 00:02 Infused .Q1H1M ONE Infusion Ketorolac Tromethamine 30 mg 04/09/23 00:25 04/09/23 01:10 Ketorolac Tromethamine 30 Mg/Ml Vial IVPUSH 04/09/23 00:26 30 mg ONCE ONE Administration Lorazepam 1 mg 04/08/23 23:04 04/08/23 23:21 Lorazepam 2 Mg/Ml Vial IVPUSH 04/08/23 23:05 1 mg ONCE ONE Administration Medical Decision Making Medical Decision Making MDM Narrative: Patient's anxiety induced pseudoseizures lab workup negative patient complaining of chest pain which is localized to 2nd intercostal space on the left side which is going on for last few days likely costochondritis Lab Data MDM Lab Attestation statement: I reviewed the patient's lab results. 04/08/23 23:14 04/08/23 23:14 Labs: Lab Results 04/08/23 04/08/23 Range/Units 23:14 23:14 WBC 6.7 (4.8-10.8) X10*3/uL RBC 4.12 L (4.20-5.50) X10*6/uL Hgb 12.6 (12.0-16.0) g/dl Hct 36.9 L (37.0-47.0) % MCV 89.6 (80.0-98.0) fL MCH 30.6 (27.0-33.0) pg MCHC 34.1 (31.0-35.0) g/dl RDW 11.6 (11.0-16.0) % Plt Count 235 (160-400) X10*3/uL MPV 10.0 (9.4-12.3) fL Immature Gran % (Auto) 0.3 (0.0-0.4) % Neut % (Auto) 51.5 (45-73) % Lymph % (Auto) 40.6 H (20-40) % [place] % (Auto) 6.7 (2-11) % Eos % (Auto) 0.6 (0-4) % Baso % (Auto) 0.3 (0-2) % Lymph # (Auto) 2.7 (1.2-4.9) X10*3/uL [place] # (Auto) 0.5 (0.1-1.2) X10*3/uL Eos # (Auto) 0.0 (0.0-0.4) X10*3/uL Baso # (Auto) 0.0 (0.0-0.2) X10*3/uL Abs Immat Gran (auto) 0.02 (0.00-0.03) X10*3/uL Absolute Neuts (auto) 3.5 (2.0-8.3) x10*3/uL Absolute Nucleated RBC 0.000 (0.0-0.012) X10*3/uL Nucleated RBC % (auto) 0.0 (0.0-0.2) /100WBC Sodium 136 (135-145) mmol/L Potassium 4.5 (3.3-5.1) mmol/L Chloride 105 (96-108) mmol/L Carbon Dioxide 21 L (22-29) mmol/L Anion Gap 15 (12-20) BUN 15 (9-16) mg/dL Creatinine 1.04 (0.5-1.4) mg/dL Estim Creat Clear Calc 67.0 Estimated GFR > 60 Random Glucose 126 H (60-115) mg/dL Calcium 8.8 D (8.4-10.2) mg/dL Total Bilirubin 0.2 (0.0-1.0) mg/dL AST 22 (5-31) U/L ALT 21 (0-31) U/L Alkaline Phosphatase 93 (39-117) U/L Total Protein 7.0 (6.5-8.0) g/dL Albumin 4.0 (3.5-5.0) g/dL Independent Interpretation I performed an independent interpretation of an: EKG Interpretation: Normal sinus rhythm heart rate 89 beats per minute normal interval normal axis no acute ST change and no acute ischemic changes Discharge Plan Discharge Clinical Impression: Psychogenic nonepileptic seizure, Costochondritis Patient Disposition: Home, Self-Care Instructions: Costochondritis (ED), Nonepileptic Seizures (ED) Additional Instructions: Continue medication for anxiety and Depakote and follow-up with your PCP Your chest pain is from the inflammation of the cartilage take ibuprofen for pain Prescriptions: New ibuprofen 600 mg tablet 600 mg PO Q6H PRN (Reason: fever or pain) Qty: 30 0RF No Action hydroxyzine HCl 25 mg tablet 25 mg PO QID PRN (Reason: Sleeping aid) Qty: 10 0RF tamsulosin [Flomax] 0.4 mg capsule 0.4 mg PO DAILY 21 Days Qty: 21 0RF prednisone 20 mg tablet 40 mg PO DAILY 5 Days Qty: 10 0RF fluticasone propionate [Flonase Allergy Relief] 50 mcg/actuation spray,suspension 2 spray intranasal DAILY Qty: 16 0RF Rx Instructions: administer into each nostril divalproex 250 mg tablet extended release 24 hr PO fluoxetine 20 mg capsule 20 mg PO DAILY prazosin 5 mg capsule 5 mg PO BEDTIME
[2023-04-08 23:18] LABS: Basophils Percent Auto 0.3 % (0-2); Eosinophils Percent Auto 0.6 % (0-4); Hematocrit 36.9 % (37.0-47.0); Hemoglobin 12.6 g/dl (12.0-16.0); Imm Gran Abs Auto 0.02 X10*3/uL (0.00-0.03); Imm Gran Pct Auto 0.3 % (0.0-0.4); Lymphocytes Absolute Auto 2.7 X10*3/uL (1.2-4.9); Lymphocytes Percent Auto 40.6 % (20-40); MANUAL DIFF FLAG NO; Mean Corpuscular HGB Conc 34.1 g/dl (31.0-35.0); Mean Corpuscular Hemoglobin 30.6 pg (27.0-33.0); Mean Corpuscular Volume 89.6 fL (80.0-98.0); Monocytes Absolute Auto 0.5 X10*3/uL (0.1-1.2); Monocytes Percent Auto 6.7 % (2-11); Neutrophils Absolute Auto 3.5 x10*3/uL (2.0-8.3); Neutrophils Percent Auto 51.5 % (45-73); Platelet Count 235 X10*3/uL (160-400); Red Blood Count 4.12 X10*6/uL (4.20-5.50); Red Cell Distribution Width 11.6 % (11.0-16.0); White Blood Count 6.7 X10*3/uL (4.8-10.8)
[2023-04-08] MEDS: LORazepam 2 MG/ML VIAL 1 MG IVPUSH (23:21)
[2023-04-08] MEDS: 0.9 % Sodium Chloride 1,000 ML 999 ML IV (23:21)
--- NOTE | 2023-04-08 23:30 | PC.NURSE ---
this rn placed pt on front desk monitor. this rn placed 20 G IV R AC. pt tolerated well. partner at bedside. pt medicated according to mar. pt awake alerta and oriented. pt reports not feeling safe to walk to bathroom. pt placed on periwick
[2023-04-08 23:36] LABS: Alanine Aminotransferase 21 U/L (0-31); Alkaline Phosphatase 93 U/L (39-117); Anion Gap 15 (12-20); Aspartate Amino Transferase 22 U/L (5-31); Bilirubin Total 0.2 mg/dL (0.0-1.0); Blood Urea Nitrogen 15 mg/dL (9-16); Calcium 8.8 mg/dL (8.4-10.2); Carbon Dioxide 21 mmol/L (22-29); Chloride 105 mmol/L (96-108); Estimated Glomerular Filt Rate > 60; Glucose Random 126 mg/dL (60-115); Potassium 4.5 mmol/L (3.3-5.1); Sodium 136 mmol/L (135-145)
[2023-04-08 23:44] VITALS: BP 105/56; PULSE 88; RESP 18; TEMP 36.7; O2SAT 96
--- NOTE | 2023-04-09 00:22 | ECG_ITS ---
Test Reason : CHEST PAIN Blood Pressure : / mmHG Vent. Rate : 089 BPM Atrial Rate : 089 BPM P-R Int : 176 ms QRS Dur : 074 ms QT Int : 384 ms P-R-T Axes : 048 069 030 degrees QTc Int : 467 ms Normal sinus rhythm Normal ECG When compared with ECG of 25-APR-2022 12:02, QT has lengthened Referred By: Lloyd Daly Electronically Signed By:ZEYNEP MULLEN MD
[2023-04-09] MEDS: Ketorolac Tromethamine 30 MG/ML VIAL IVPUSH (01:10)
[2023-04-09 01:22] LABS: Appearance Urine Clear; Color Urine Yellow; Glucose Urine UA Negative (Negative); Leukocyte Esterase Urine Negative (Negative); Nitrite Urine Negative (Negative); Specific Gravity - Urine <= 1.005 (1.005-1.025); Urine Blood Negative (Negative); Urine Ketones Negative (Negative); Urine Protein Negative (Neg-Trace)
[2023-04-09 01:23] LABS: UPreg QC Valid YES; Urine Pregnancy NEGATIVE (NEGATIVE)
[2023-04-09 01:30] VITALS: BP 96/52; PULSE 93; RESP 12; O2SAT 98
--- NOTE | 2023-04-09 01:30 | PC.NURSE ---
iv removed at discharge. pt partner at bedside. pt ambulatory at discharge. pt provided with discharge packet. pt verbalized understanding of discharge plan
== END 2023-04-09 01:32 | disposition home or self-care (01) ==
PROVIDERS: Emergency Provider Internal Medicine
DX: R56.9 Unspecified convulsions (principal); M94.0 Chondrocostal junction syndrome [Tietze]; R07.89 Other chest pain; Z79.899 Other long term (current) drug therapy
CPT/HCPCS: 36415; 80053; 81003; 81025; 85025; 93005; 96361; 96374; 96375; 99284; J1885; J2060